=== PATIENT | male | born 1955 | race Caucasian/White ===

== ENCOUNTER 2016-11-13 19:49 | Emergency (ER) | payer OTHER ==
[~2016-11-13] VITALS: Ht 180.3 cm; Wt 80.0 kg
[~2016-11-13 19:49] MED LIST: LORT5TAB PO; PRIL20TA2 PO
[2016-11-13 19:52] VITALS: BP 170/100; PULSE 84; RESP 14; TEMP 98.8; O2SAT 99
[2016-11-17] MEDS ORDERED: PRIL20CA9 PO (15:36)
[2016-12-08] MEDS ORDERED: NICO21DI2 T-DERMAL (10:29)
[2016-12-25] MEDS ORDERED: OMEP20TA PO (14:31)
== END 2016-11-13 22:45 | disposition left against medical advice (07) ==
LOC: NED 19:49
DX: Z53.21 Procedure and treatment not carried out due to patient leaving prior to being seen by health care provider (principal)
CPT/HCPCS: 99281

== ENCOUNTER → 2016-12-11 | Outpatient (CLI) | payer OTHER ==
[~2016-12-11] MED LIST changes: -LORT5TAB PO; +NICO21DI2 T-DERMAL; +OMEP20TA PO; +PRIL20CA9 PO; -PRIL20TA2 PO
[2016-12-11 09:02] LABS: BLOOD GAS BASE EXCESS -1.2 mmol/L (-2-2); BLOOD GAS CARBOXYHEMOGLOBIN 2.2 % (0-4); BLOOD GAS HCO3 22 mmol/L (22-26); BLOOD GAS O2 HGB SATURATION 92 % (90-100); BLOOD GAS OXYGEN CONTENT 12.1 Vol % (12.0-20.0); BLOOD GAS PCO2 33 mmHg (38-42); BLOOD GAS PO2 80 mmHg (61-120); BLOOD GAS TOTAL HGB 9.2 G/DL (12.0-16.0); TEMP CORR TO 98.6
[2016-12-11 09:04] LABS: CRITICAL VALUE NO; DRAW SITE RT RADIAL; FIO2 21 %; NUMBER OF ARTERIAL PUNCTURES 1; STAT NO; ULNAR PULSE PRESENT
--- NOTE | 2016-12-12 08:41 | RSPPFT ---
DATE OF PROCEDURE: 12/10/16 COMMENTS: Spirometry shows FVC of 4.5 at 96% of predicted, FEV1 of 2.9 at 90%, FEV1/FVC ratio is decreased. Flow is decreased at FEF 25, FEF 50, FEF 75 and FEF 25-75. There is no significant response after bronchodilator treatment. Lung volumes show residual volume is increased. TLC is normal. Diffusion capacity is decreased. Flow volume loop indicates an obstructive pattern. Room air arterial blood gases show pH of 7.4, PCO2 of 33, PO2 of 80, BiCarb of 22, [id number] at 92%. IMPRESSION: 1. Mild small airways obstructive lung disease. 2. Mild response after bronchodilator treatment. 3. Lung volumes show hyperinflation. 4. Mild decrease in diffusion capacity. 5. Blood gases show normal oxygenation on room air.
== END ==
LOC: HRSP 07:51
PROVIDERS: ATTEND Specialist
DX: J44.9 Chronic obstructive pulmonary disease, unspecified (principal)
CPT/HCPCS: 36600; 82805; 94060; 94726; 94729